=== PATIENT | female | born 1970 ===

== ENCOUNTER → 2017-07-26 | Emergency (ER) | payer OTHER ==
[~2017-07-26] VITALS: Ht 165.1 cm; Wt 73.5 kg
[~2017-07-26] MED LIST: ENALAPRIL MALEA10 MG; FIORICET 50-321 EACH PO
== END | disposition home or self-care (01) ==
LOC: ER 17:53
DX: I10 Essential (primary) hypertension (principal)

== ENCOUNTER → 2017-08-14 | Emergency (ER) | payer OTHER ==
[~2017-08-14] VITALS: Ht 162.6 cm; Wt 72.6 kg
[~2017-08-14] MED LIST changes: +AVALIDE 300-121 EACH; +LAMISIL250 MG
== END | disposition home or self-care (01) ==
LOC: ER 10:56
DX: S60.051A Contusion of right little finger without damage to nail, initial encounter (principal); X50.3XXA Overexertion from repetitive movements, initial encounter; Y93.89 Activity, other specified; Y92.89 Other specified places as the place of occurrence of the external cause; Y99.8 Other external cause status